=== PATIENT | male | born 1995 | race Caucasian/White ===

== ENCOUNTER 2018-12-06 20:58 | Emergency (ER) | payer OTHER ==
--- NOTE | 2018-12-06 21:06 | EDPHY ---
General - History Smoking Status: Never smoked Time Seen by Provider: 12/06/18 21:04 Narrative: 2115: I assessed the patient at the request of Mehreen Cruz PA-C. The patient reports that the swelling started around 2 days ago and he was placed on Amoxicillin. He presented three times to a dentist who diagnosed him with grinding. Yesterday he went back to the dentist and had a filling opened up at tooth 13. After the latest dentist visit he was prescribed Amoxicillin. On exam he has petechiae on his soft pallet and swelling of his left maxilla. Patient will need an I-Stat and a maxillofacial CT. Patient will also need a 600mg dose of IV Clindamycin and 10mg IV Decadron. 3: I spoke with Dr. Khoury, radiologist, regarding this patient. There is a small apical abscess of tooth 13 and 14. There is some sinusitis. Patient will need to be started on Clindamycin and follow up with an oral surgeon. 6: Reassessed patient ad discussed imaging findings. Patient is comfortable with new antibiotics and seeing an oral surgeon tomorrow. Return precautions provided; patient is comfortable with this plan. (Bentley Benitez) CLINICAL IMPRESSION: Dental abscess, chronic sinusitis ASSESSMENT/PLAN: Patient is a 23-year-old male with a history of recent dental infection and root canal who presents to the emergency department with increased pain and facial swelling. Patient afebrile on arrival, uncomfortable appearing however not toxic appearing. Physical examination reveals obvious left-sided facial swelling. With concern for deep space infection, proceeded with a facial CT. Facial CT revealed 15 x 6 mm early abscess left maxillary region above teeth 13 and 14; also findings suggestive of moderate to severe left chronic sinusitis. CBC revealed no evidence of leukocytosis, BMP grossly unremarkable. His vital signs were reviewed, no findings to suggest sepsis or serious bacterial illness. History and physical examination consistent with small periapical abscess, facial swelling and chronic sinusitis. There was no evidence of deep space infection, ANUG, peritonsillar abscess, retropharyngeal abscess or Garo's angina. The patient was given 600 mg of clindamycin in the emergency department , narcotic with improvement of his pain. Patient was handling secretions normally, no trismus, no angioedema or evidence of airway compromise. Dr. Black with oral surgery was consulted, he will evaluate this patient tomorrow morning. No indication for admission. On repeat exam and prior to discharge the patient reports feeling mildly better, conservative return precautions discussed with him and his parents. ED COURSE: 2118: Case discussed with Dr. Benitez, he also evaluated this patient. 2134: Laboratory studies reviewed, no evidence of leukocytosis. 2204: CT reviewed by myself and Dr. Benitez, no obvious abscess. Will await formal radiology read. 2209: Discussed case with Dr. Black with Oral surgery, he will evaluate this patient tomorrow morning. 2229: On repeat evaluation the patient reports that he is feeling better. His vital signs have remained stable. He and his parents have no other concerns at this time. Return precautions discussed. CHIEF COMPLAINT: Left upper dental pain, possible infection HPI: Patient is a 23-year-old male with a history of a recent dental infection and root canal who presents to the emergency department with increased pain and facial swelling. Patient reports history of dental abscess, the tooth was removed and packed, he a root canal was performed yesterday. He was placed on amoxicillin and has taken a total of 3 doses. Patient reports increased pain since yesterday as well as oral and facial swelling. He is generally feeling unwell. Patient reports significantly worsening swelling that has taken place today, he is now noticing swelling up into his cheek and below his eye. He is having difficulty with biting down and opening his mouth. He denies any fever or chills. He has been eating however very little. He denies any sore throat or difficulty swallowing. He denies any hoarseness or change in voice. He denies any headache, dizziness, chest pain or shortness of breath. PMH: Attention deficit hyperactivity disorder Family History: Not contributory Social History: Occasional alcohol, denies smoking REVIEW OF SYSTEMS: All other systems negative Constitutional: Mildly decreased appetite. No fever, no chills. Eyes: No discharge, vision change ENT: Facial swelling, Dental pain. No sore throat, congestion, ear pain. Cardiovascular: No chest pain, no palpitations. Respiratory: No cough, no shortness of breath. Gastrointestinal: No abdominal pain, no vomiting, diarrhea. Genitourinary: No hematuria, dysuria, flank pain. Musculoskeletal: No back pain, joint swelling, joint pain, myalgias. Skin: No rashes, color change. Neurological: No headache, dizziness, weakness. PHYSICAL EXAM: General Appearance: Uncomfortable appearing however not toxic-appearing. HENT: Normocephalic, atraumatic. Patient with obvious facial swelling overlying the left cheek and maxillary region, there is very faint erythema. Bilateral external ears are normal. Bilateral tympanic membranes are normal with pearly titus reflex. Nares are clear, mucosa is pink. Patient is able to open his mouth completely however this does cause some discomfort. His phonation is normal, there is no stridor. There is petechiae noted on his palate. There is a small palpable periapical abscess above tooth 13. Patient is extremely tender to palpation, no malocclusion. Eyes: PERRLA, EOMI. Conjunctiva pink, no pallor or injection Neck: Supple, nontender, no lymphadenopathy, no midline pain, FROM, no meningismus. Respiratory: There are no retractions, lungs are clear to auscultation. Cardiac: Regular rate and rhythm, no murmurs or gallops. Gastrointestinal: Abdomen is soft, nontender, bowel sounds normal, no masses/ hernia, no rigidity, guarding or focal peritoneal findings. Neurological: Alert and oriented x 3, CN 2-12 grossly intact, normal sensation and strength Skin: Warm, dry, no rashes, no nodules on palpation. Musculoskeletal: Extremities are symmetrical, full range of motion, no tenderness, deformity, swelling, or erythema. Psychiatric: Mood and affect are normal, there is no agitation. MEDICAL DECISION MAKING: Patient was seen by myself and Dr. Benitez. Diagnosis: Dental infection. Summary: See Assessment and Plan for summary of ED visit Clinical lab tests: ordered / reviewed. Independent visualization of images, tracing, or specimens: Yes. Decision to obtain medical records or history from someone other than the patient: Yes, mother and father Review / Summarize previous medical records: Yes Discussed patient with another provider: Yes, Dr. Benitez Patient Progress: Stable, discharge. (Anthony,Tyra K) - Diagnostics Imaging Results: Imaging Impressions Face CT 12/06/18 21:17 Impression: 15 x 6 mm early abscess adjacent to the left maxilla near the 13th of the 14th 2. No evidence for lucency around the roots of these teeth or cortical breakthrough. Adjacent inflammatory change and overlying subcutaneous fat. Moderate severe chronic sinus related change left maxillary sinus. Results called and discussed with Dr. Bentley Benitez at 12/06/2018 22:12. - Objective Vital Signs: Initial Vital Signs Heart Rate 76 12/06/18 21:00 Respiratory Rate 17 12/06/18 21:00 Blood Pressure 154/92 H 12/06/18 21:00 O2 Sat (%) 95 12/06/18 21:00 O2 Delivery Mode Room Air Allergies/Adverse Reactions: No Known Allergies Allergy (Verified 12/06/18 21:00) Home Medications: Medication Instructions Recorded Focalin Xr 08/22/13 Zoloft 08/22/13 Amoxicillin 12/06/18 Clindamycin HCl [Clindamycin] 300 mg PO QID 7 Days cap 12/06/18 Laboratory Results: Laboratory Results 12/06/18 21:24 12/06/18 12/06/18 21:27 21:24 WBC 8.58 10^3/uL 10^3/uL (3.80-9.50) RBC 5.17 10^6/uL 10^6/uL (4.40-6.38) Hgb 15.8 g/dL g/dL (13.7-17.5) POC Hgb 16.0 gm/dL gm/dL (13.7-17.5) Hct 45.8 % % (40.0-51.0) POC Hct 47 % % (40-51) MCV 88.6 fL fL (81.5-99.8) MCH 30.6 pg pg (27.9-34.1) MCHC 34.5 g/dL g/dL (32.4-36.7) RDW 11.9 % % (11.5-15.2) Plt Count 220 10^3/uL 10^3/uL (150-400) MPV 8.3 fL L fL (8.7-11.7) Neut % (Auto) 67.2 % % (39.3-74.2) Lymph % (Auto) 19.0 % % (15.0-45.0) Woodruff % (Auto) 11.2 % % (4.5-13.0) Eos % (Auto) 2.1 % % (0.6-7.6) Baso % (Auto) 0.2 % L % (0.3-1.7) Nucleat RBC Rel Count 0.0 % % (0.0-0.2) Absolute Neuts (auto) 5.76 10^3/uL 10^3/uL (1.70-6.50) Absolute Lymphs (auto) 1.63 10^3/uL 10^3/uL (1.00-3.00) Absolute Monos (auto) 0.96 10^3/uL H 10^3/uL (0.30-0.80) Absolute Eos (auto) 0.18 10^3/uL 10^3/uL (0.03-0.40) Absolute Basos (auto) 0.02 10^3/uL 10^3/uL (0.02-0.10) Absolute Nucleated RBC 0.00 10^3/uL 10^3/uL (0-0.01) Immature Gran % 0.3 % % (0.0-1.1) Immature Gran # 0.03 10^3/uL 10^3/uL (0.00-0.10) POC Sodium 140 mEq/L mEq/L (135-145) POC Potassium 4.3 mEq/L mEq/L (3.3-5.0) POC Chloride 103 mEq/L mEq/L (97-110) POC Total CO2 26 mEq/L mEq/L (22-31) POC BUN 10 mg/dL mg/dL (7-23) POC Creatinine 1.0 mg/dL mg/dL (0.7-1.3) POC Glucose 88 mg/dL mg/dL (70-100) Medications Given: Discontinued Medications Clindamycin (Cleocin 150 Mg Prepack#6) 1 btl TAKEHOME EDNOW ONE PRN Reason: Protocol Stop: 12/06/18 22:30 Last Admin: 12/06/18 22:41 Dose: 1 btl Dexamethasone (Decadron Injection) 10 mg IVP EDNOW ONE Stop: 12/06/18 21:22 Last Admin: 12/06/18 21:58 Dose: 10 mg Hydromorphone HCl (Dilaudid) 0.5 mg IVP EDNOW ONE Stop: 12/06/18 21:23 Last Admin: 12/06/18 21:58 Dose: 0.5 mg Clindamycin Phosphate/Dextrose (Cleocin 600 Mg (Premix)) 50 mls @ 100 mls/hr IV EDNOW ONE PRN Reason: Protocol Stop: 12/06/18 21:50 Last Admin: 12/06/18 21:58 Dose: 50 mls Point of Care Test Results: Chemistry 12/06/18 21:27 POC Sodium 140 mEq/L mEq/L (135-145) POC Potassium 4.3 mEq/L mEq/L (3.3-5.0) POC Chloride 103 mEq/L mEq/L (97-110) POC Total CO2 26 mEq/L mEq/L (22-31) POC BUN 10 mg/dL mg/dL (7-23) POC Creatinine 1.0 mg/dL mg/dL (0.7-1.3) POC Glucose 88 mg/dL mg/dL (70-100) ISTAT H&H 12/06/18 21:27 POC Hgb 16.0 gm/dL gm/dL (13.7-17.5) POC Hct 47 % % (40-51) Departure - Departure Disposition: Home, Routine, Self-Care Clinical Impression: Apical abscess Sinusitis Qualifiers: Sinusitis location: unspecified location Chronicity: unspecified Qualified Code (s): J32.9 - Chronic sinusitis, unspecified Condition: Good Instructions: Clindamycin (By mouth), Dental Abscess (ED), Sinusitis (ED), Toothache (ED) Additional Instructions: DISCHARGE INSTRUCTIONS FROM YOUR PROVIDER Thank you for visiting our emergency department today. Please keep in mind that discharge from the emergency department does not mean that there is nothing wrong - it simply means that we have not identified an emergency condition that requires further evaluation or treatment in the hospital. You should always plan to follow up with primary care for re-evaluation of your condition in the next 2-3 days. If you have been referred to a specialist, please call as soon as possible (today or tomorrow) to schedule your follow up appointment at the appropriate time. I spoke to Dr. Black with Oral surgery, please call his office 1st thing tomorrow morning to be seen tomorrow. Your antibiotics have been changed, your 1st dose will be 1st thing next morning. This medication can cause diarrhea, take a probiotic while taking this medication. 1. Buy Flonase and Mucinex of the counter and use as directed for sinusitis. 2. Call Dr. Black tomorrow at 8:00am to schedule an appointment for tomorrow. 3. Take Clindamycin as prescribed, you should take 300mg PO four times a day. 4. Return to the ED for fever, difficulty swallowing, increase in swelling or other concerns. People present with illnesses and injuries in different ways, and it is always possible that we have missed something. Again, thank you for choosing our emergency department. We hope that you feel better. Referrals: Heydi Foote, TRAINING DEVELOPMENT SPECIALIST [Primary Care Provider] - As per Instructions Andrew Black DDS [Doctor of Dental Surgery] - As per Instructions Prescriptions: Clindamycin HCl [Clindamycin] 300 mg PO QID 7 Days cap
[2018-12-06] MEDS ORDERED: CLINDAMYCIN 600 MG/DEXTROSE 50 ML IV ONE (21:21)
[2018-12-06] MEDS ORDERED: DEXAMETHASONE 10 MG/ML VIAL IVP ONE (21:21)
[2018-12-06] MEDS ORDERED: HYDROmorphONE/DILAUDID 2 MG/ML INJ IVP ONE (21:22)
[2018-12-06] MEDS ORDERED: IOPAMIDOL (ISOVUE-300) 100 ML BTL ONE (21:27)
[2018-12-06 21:35] LABS: PLATELET COUNT 220 10^3/uL (150-400)
[2018-12-06] MEDS ORDERED: CLINDAMYCIN 150MG PREPACK#6 BTL TAKEHOME ONE (22:29)
[2018-12-06 22:45] VITALS: BP 131/71
== END 2018-12-06 22:45 | disposition home or self-care (01) ==
DX: K04.7 Periapical abscess without sinus (principal); J32.9 Chronic sinusitis, unspecified
CPT/HCPCS: 82435-PO; 82565-PO; 82947-PO; 84132-PO; 84295-PO; 84520-PO; 85014-ER; 96365; J1100; J1170; Q9967